=== PATIENT | female | born 1960 | race Caucasian/White ===

== ENCOUNTER → 2016-09-29 | Outpatient (CLI) | payer SELFPAY ==
[2016-01-04 08:57] VITALS: BP 168/83
[~2016-09-29] MED LIST: AMOX1TAB61 PO; METO50TA2 PO; PRED1TAB3 PO; WARF3TAB7 PO; ZOLP5TAB4 PO
--- NOTE | 2016-09-29 09:37 | CARD ---
APPROVED REPORT EXAM: Two-dimensional and M-mode echocardiogram with Doppler and color Doppler. Other Information Quality : GoodHR: 106bpm Rhythm : Tachycardia INDICATION Elevated BPN, SOB, Lower extremity edema RISK FACTORS Hypertension Family History Smoking 2D DIMENSIONS RVDd3.0 (2.9-3.5cm)Left Atrium(2D)3.8 (1.6-4.0cm) IVSd1.0 (0.7-1.1cm)Aortic Root(2D)2.9 (2.0-3.7cm) LVDd5.6 (3.9-5.9cm)LVOT Diameter2.3 (1.8-2.4cm) PWd1.0 (0.7-1.1cm)LVDs5.2 (2.5-4.0cm) FS (%) 8.6 %SV29.2 ml LVEF(%)18.7 (>50%) Aortic Valve AoV Peak Rudy.95.4cm/sAoV VTI13.7cm AO Peak GR.3.6mmHgLVOT Peak Rudy.66.4cm/s AO Mean GR.2mmHgAVA (VMAX)2.81cm2 Mitral Valve MV E Peak Gr.6mmHgMV E Mean Gr.2mmHg Pulmonary Valve PV Peak Gnljthwy897.3cm/s Tricuspid Valve TR P. Iaosoaab325zm/sTR Peak Gr.40mmHg Pulmonary Vein S1 Webydpjd45.5cm/sD2 Upnlosfz34.1cm/s PVa [id number] LEFT VENTRICLE The Left Ventricle is mildly dilated. There is normal left ventricular wall thickness. Left ventricle systolic function is severely impaired. The Ejection Fraction is <20%. There is severe global hypoki nesis of the left ventricle. There is akinesis in the basal, mid and apical anteior hagen. Tissue Dop pler imaging reveals severe left ventricular diastolic dysfunction. No left ventricle thrombus noted on this study. There is no left ventricular aneurysm. RIGHT VENTRICLE The right ventricle is normal size. There is normal right ventricular wall thickness. The right ventr icular systolic function is normal. ATRIA The left atrium is severely dilated. The right atrium size is normal. The interatrial septum is intac t with no evidence for an atrial septal defect or patent foramen ovale as noted on 2-D or Doppler williams ging. AORTIC VALVE The aortic valve is mildly The aortic valve is thickened. Doppler and Color Flow revealed no signific ant aortic regurgitation. There is no significant aortic valvular stenosis. MITRAL VALVE The mitral valve leaflets are thickened. There is no evidence of mitral valve prolapse. There is no m itral valve stenosis. Doppler and Color Flow revealed mild mitral regurgitation. TRICUSPID VALVE Doppler and Color Flow revealed moderate tricuspid regurgitation. The pulmonary artery systolic press ure is estimated at 59 mmHg. There is moderate pulmonary hypertension. PULMONIC VALVE Doppler and Color Flow revealed mild pulmonic valvular regurgitation. There is no pulmonic valvular s tenosis. GREAT VESSELS The aortic root is normal in size. The ascending aorta is normal in size. The IVC is dilated and dashawn apses <50% with inspiration consistent with volume overload. PERICARDIAL EFFUSION There is no evidence of significant pericardial effusion. Critical Notification Physician Notified Date: 09/29/2016 Time: 09:35 Physician Name:Appl Critical Value: No <Conclusion> Left ventricle systolic function is severely impaired. The Ejection Fraction is <20%. There is severe global hypokinesis of the left ventricle. There is akinesis in the basal, mid and ap ical anteior hagen. Tissue Doppler imaging reveals severe left ventricular diastolic dysfunction. Doppler and Color Flow revealed mild mitral regurgitation. Doppler and Color Flow revealed moderate tricuspid regurgitation. The pulmonary artery systolic press ure is estimated at 59 mmHg. There is moderate pulmonary hypertension. The IVC is dilated and collapses <50% with inspiration consistent with volume overload. *D/w with primary care physician, will plan for coronary angiography due to symptomatic heart failure .
== END | disposition home or self-care (01) ==
LOC: ECHO 07:49
PROVIDERS: ATTEND Nurse Practitioner Family
DX: R94.5 Abnormal results of liver function studies (principal); R79.89 Other specified abnormal findings of blood chemistry; R06.02 Shortness of breath; R60.0 Localized edema; I34.0 Nonrheumatic mitral (valve) insufficiency; I07.1 Rheumatic tricuspid insufficiency; I27.2 Other secondary pulmonary hypertension
CPT/HCPCS: 93306

== ENCOUNTER 2016-09-30 10:18 | Inpatient (IN) | payer SELFPAY ==
[~2016-09-30] VITALS: Ht 167.6 cm; Wt 86.8 kg
[2016-09-30 11:16] LABS: BASO % 1 % (0-3); EOS % 0 % (0-3); HEMATOCRIT 44.2 % (36.0-47.0); HEMOGLOBIN 14.3 g/dL (12.0-15.5); LYMPH # 0.8 x10^3/uL (1.0-4.8); LYMPH % 9 % (24-48); MEAN CORPUSCULAR HEMOGLOBIN 27 pg (25-35); MEAN CORPUSCULAR HGB CONC 32 g/dL (31-37); MEAN CORPUSCULAR VOLUME 83 fL (79-100); MONO % 8 % (0-9); NEUT % 83 % (31-73); PLATELET COUNT 227 x10^3/uL (140-400); RED BLOOD COUNT 5.31 x10^6/uL (3.50-5.40); RED CELL DISTRIBUTION WIDTH 16.4 % (11.5-14.5); WHITE BLOOD COUNT 9.7 x10^3/uL (4.0-11.0)
[2016-09-30 11:29] LABS: CALCIUM 9.2 mg/dL (8.5-10.1); CREATININE 0.9 mg/dL (0.6-1.0); GFR 64.8; POTASSIUM 3.5 mmol/L (3.5-5.1)
--- NOTE | 2016-09-30 11:33 | RAD ---
INDICATION: cough, fever, dyspnea COMPARISON: 12/30/2015 FINDINGS: Single view of chest obtained. Cardiac silhouette is enlarged. No definite new region of focal airspace consolidation or edema. Interval improvement in previously identified right lower lung opacity. IMPRESSION: No definite new region of focal airspace consolidation. Cardiac silhouette is enlarged.
[2016-09-30 11:34] LABS: OBC FLU VALID
[2016-09-30 11:36] LABS: ALBUMIN 3.4 g/dL (3.4-5.0); ALBUMIN/GLOBULIN RATIO 0.9 (1.0-1.7); TOTAL BILIRUBIN 1.1 mg/dL (0.2-1.0); TOTAL PROTEIN 7.4 g/dL (6.4-8.2)
[2016-09-30 11:43] LABS: CKMB INDEX 2.5 % (0-4); CKMB MASS 2.7 ng/mL (0.0-3.6)
[2016-09-30] MEDS ORDERED: OSELTAMIVIR 75 MG CAPSULE PO ONE (12:00)
[2016-09-30] MEDS ORDERED: FUROSEMIDE 40 MG/4 ML VIAL IVP ONE (12:00)
--- NOTE | 2016-09-30 12:17 | PHYS DOC ---
Past Medical History Past Medical History: Asthma, Bronchitis, CHF, Hypertension, Lung Disease Past Surgical History: Other Additional Past Surgical Histo: chest tube placement and removal Alcohol Use: None Drug Use: Marijuana, Methamphetamine Adult General Chief Complaint Chief Complaint: SHORTNESS OF BREATH HPI HPI Patient is a 56 year old female brought to the ED by her daughter with the complaint of not feeling well and short of air. Patient states she has been sick for about a week. She's had fever, she aches all over. She short of breath and has had a cough. Nausea but no vomiting, no diarrhea. She is spitting up bloody/pink frothy sputum. The patient was short of air before she got sick with this illness. The patient states she did not get a flu shot because "she never gets a flu shot". Patient had an echocardiogram yesterday and was found to have a very low ejection fraction and is actually scheduled to have a heart catheter in 2 days. They are no what is causing that. She had the echo because of her shortness of air. Patient had surgery in 2011 for an empyema in her right lung, also had "blood clots" at that time. She usually takes daily warfarin but it has been held since Thursday. PCP Review of Systems Review of Systems Constitutional: Positive fever and chills Eyes: Denies change in visual acuity, redness, or eye pain [] HENT: Denies nasal congestion or sore throat [] Respiratory: As in history of present illness Cardiovascular: As in history of present illness GI: As in history of present illness : Denies dysuria or hematuria [] Musculoskeletal: Aches all over with this illness Integument: Denies rash or skin lesions [] Neurologic: Denies focal weakness or sensory changes [] Current Medications Current Medications Current Medications Medications (Trade) Dose Ordered Sig/José Luis Start Time Stop Time Status Last Admin Dose Admin Furosemide (Lasix) 40 mg 1X ONCE 09/30/16 12:00 09/30/16 12:03 DC Oseltamivir Phosphate (Tamiflu) 75 mg BID 09/30/16 21:00 10/05/16 20:59 UNV Allergies Allergies Allergies Coded Allergies Type Severity Reaction Last Updated Verified No Known Drug Allergies 12/30/15 No Physical Exam Physical Exam Constitutional: Well developed, well nourished, alert, mentating normally, appears to not feel well, appears weak, tachycardic, tachypneic, sat on room air is 96% HENT: Normocephalic, atraumatic, bilateral external ears normal, nose normal. [ ] Eyes: conjunctiva normal, no discharge. [] Neck: Normal range of motion, no stridor. [] Cardiovascular:Heart rate regular tachycardia, no murmur [] Lungs & Thorax: Breath sounds present bilaterally, rales in both bases, expiratory wheezes present Abdomen: Bowel sounds normal, soft, no tenderness, no masses, no pulsatile masses. [] Skin: Warm, dry, no erythema, no rash. [] Extremities: No tenderness, no cyanosis, no clubbing, ROM intact, no edema. [] Neurologic: Alert and oriented X 3, normal motor function, normal sensory function, no focal deficits noted. [] Current Patient Data Vital Signs Vital Signs Date Time Temp Pulse Resp B/P Pulse Ox O2 Delivery O2 Flow Rate FiO2 09/30/16 11:04 115 24 143/72 96 Room Air 09/30/16 10:25 102.8 102.8 Lab Values Laboratory Tests Test 09/30/16 11:00 White Blood Count 9.7x10^3/uL (4.0-11.0) Red Blood Count 5.31x10^6/uL (3.50-5.40) Hemoglobin 14.3g/dL (12.0-15.5) Hematocrit 44.2% (36.0-47.0) Mean Corpuscular Volume 83fL (79-100) Mean Corpuscular Hemoglobin 27pg (25-35) Mean Corpuscular Hemoglobin Concent 32g/dL (31-37) Red Cell Distribution Width 16.4% (11.5-14.5) H Platelet Count 227x10^3/uL (140-400) Neutrophils (%) (Auto) 83% (31-73) H Lymphocytes (%) (Auto) 9% (24-48) L Monocytes (%) (Auto) 8% (0-9) Eosinophils (%) (Auto) 0% (0-3) Basophils (%) (Auto) 1% (0-3) Neutrophils # (Auto) 8.1x10^3uL (1.8-7.7) H Lymphocytes # (Auto) 0.8x10^3/uL (1.0-4.8) L Monocytes # (Auto) 0.7x10^3/uL (0.0-1.1) Eosinophils # (Auto) 0.0x10^3/uL (0.0-0.7) Basophils # (Auto) 0.0x10^3/uL (0.0-0.2) Sodium Level 137mmol/L (136-145) Potassium Level 3.5mmol/L (3.5-5.1) Chloride Level 100mmol/L (98-107) Carbon Dioxide Level 25mmol/L (21-32) Anion Gap 12 (6-14) Blood Urea Nitrogen 10mg/dL (7-20) Creatinine 0.9mg/dL (0.6-1.0) Estimated GFR (Cockcroft-Gault) 64.8 BUN/Creatinine Ratio 11 (6-20) Glucose Level 101mg/dL (70-99) H Calcium Level 9.2mg/dL (8.5-10.1) Total Bilirubin 1.1mg/dL (0.2-1.0) H Aspartate Amino Transferase (AST) 32U/L (15-37) Alanine Aminotransferase (ALT) 35U/L (14-59) Alkaline Phosphatase 128U/L (46-116) H Creatine Kinase 107U/L (26-192) Creatine Kinase MB (Mass) 2.7ng/mL (0.0-3.6) Creatine Kinase MB Relative Index 2.5% (0-4) Troponin I Quantitative 0.053ng/mL (0.000-0.055) SP-Fns-G-Type Natriuretic Peptide 5553pg/mL (0-124) H Total Protein 7.4g/dL (6.4-8.2) Albumin 3.4g/dL (3.4-5.0) Albumin/Globulin Ratio 0.9 (1.0-1.7) L Influenza Type A Antigen Positive (NEGATIVE) Influenza Type B Antigen Negative (NEGATIVE) Laboratory Tests 09/30/16 11:00 Laboratory Tests 09/30/16 11:00 EKG EKG 12-lead EKG read by me. Sinus tachycardia. Heart rate 1:15. There is some mild ST depression in V6 may be consistent with ischemia, there are no ST elevations. No STEMI. 1029 [] Radiology/Procedures Radiology/Procedures One view portable chest x-ray read by the radiologist. Heart size is enlarged. Lung munson are felt to be clear. No acute infiltrate. By my evaluation it does look like there is some vascular cephalization consistent with congestive heart failure. [] Course & Med Decision Making Course & Med Decision Making Pertinent Labs and Imaging studies reviewed. (See chart for details) 56-year-old lady who is currently undergoing outpatient evaluation for heart failure, just had an echocardiogram yesterday that was markedly abnormal, and prompted an outpatient cardiac catheter to be scheduled for 2 days from now. However, she has had a febrile illness for several days that sounds like influenza. In fact, influenza test is positive. Even though historically her influenza may have started more than 72 hours ago, I did start her on Tamiflu since she'll be admitted to the hospital and the timeline is also somewhat unclear. Patient appears dyspneic, she is tachypneic and tachycardic. Even though her sat is 96% on room air, I put on oxygen 2 L by nasal cannula to see if that would help her symptomatically. BNP is elevated, I ordered a dose of IV furosemide. I discussed the case with Dr. Baez, we will admit the patient. I wrote bridge orders. I consult to cardiology. She was given Tamiflu and furosemide in the emergency department. Nursing staff is aware that she is positive for influenza. [] Dragon Disclaimer Dragon Disclaimer This electronic medical record was generated, in whole or in part, using a voice recognition dictation system. Departure Departure Impression: Primary Impression: Influenza A Additional Impression: CHF (congestive heart failure) Disposition: ADMITTED INPATIENT Admitting Physician: Constance Baez Condition: GUARDED Referrals: CONSTANCE BAEZ MD (PCP) Problem Qualifiers MARY CARMEN GUTIERREZ MD Sep 30, 2016 12:17
--- NOTE | 2016-09-30 12:49 | EKG ---
[facility] [address] [place] [address] Test Date: 2016-09-30 Test Time: 10:29:14 Pat Name: CARITO MOLINA Department: Room: Gender: F Tsa Screener: : 1960 Requested By: MARY CARMEN GUTIERREZ Order Number: [id number] Reading MD: Measurements Intervals [place] Rate: 115 P: -66 IA: 116 QRS: -19 QRSD: 96 T: 67 QT: 342 QTc: 475 Interpretive Statements SINUS TACHYCARDIA LEFT ATRIAL ABNORMALITY LEFTWARD AXIS QRS(T) CONTOUR ABNORMALITY CONSIDER INFERIOR MYOCARDIAL DAMAGE T ABNORMALITY IN LATERAL LEADS ABNORMAL ECG RI6.01 No previous ECG available for comparison
[2016-09-30] MEDS ORDERED: ACETAMINOPHEN 500 MG TABLET PO ONE (13:00)
--- NOTE | 2016-09-30 15:05 | PDOC2 ---
ESTEPHANIE CAMPOS TWITCHELL OPERATOR 09/30/16 1505: CARDIAC CONSULT DATE OF CONSULT Date of Consult DATE: 09/30/16 TIME: 14:35 REASON FOR CONSULT Reason for Consult: CHF REFERRING PHYSICIAN Referring Physician: Aroldo SOURCE Source: Chart review, Patient HISTORY OF PRESENT ILLNESS HISTORY OF PRESENT ILLNESS This is a pleasant 56 yo female admitted for complains of URI symptoms and CHF symptoms in the last week. Reports that she has been having nasal congestion, some chills and myalgia and weakness in the last weak. She has noticed her activity tolerance declined gradually in the last several months. Reports that in the last 1-2 weeks she has been having orthopnea, PND, white sputum with ping to red tinge coloration. Positive for peripheral edema and SOA and GONZALEZ. CUrrently she does not appear to be in distress and denies any palpitations or chest pain. Despite all these symptoms she continued to use tobacco with her last use this morning and marijuana and meth last use this weekend. She told that she kept on using this because she is stupid. Reports compliance with her medications otherwise. 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 No prior hx of CAD. She said that she uses her COPD inhalers. PAST MEDICAL HISTORY Cardiovascular: CHF, HTN Pulmonary: COPD, Pulmonary embolus (DVT 2011), Pneumonia, Other (right empyema) CENTRAL NERVOUS SYSTEM: Other (No pertinent history) GI: GERD Heme/Onc: No pertinent hx, Other (chronic anticoagulation) Hepatobiliary: No pertinent hx Musculoskeletal: Osteoarthritis Infectious disease: No pertinent hx ENT: No pertinent hx Renal/: No pertinent hx Endocrine: No pertinent hx Dermatology: No pertinent hx PAST SURGICAL HISTORY Past Surgical History: , Other (right thoracotomy) SOCIAL HISTORY Smoke: <1 pack per day ALCOHOL: none Drugs: Marijuana, Crystal meth Lives: with Family CURRENT MEDICATIONS CURRENT MEDICATIONS Current Medications Medications (Trade) Dose Ordered Sig/José Luis Route PRN Reason Start Time Stop Time Status Last Admin Dose Admin Oseltamivir Phosphate (Tamiflu) 75 mg 1X ONCE PO 09/30/16 12:00 09/30/16 12:01 DC 09/30/16 12:18 Furosemide (Lasix) 40 mg 1X ONCE IVP 09/30/16 12:00 09/30/16 12:03 DC 09/30/16 12:18 Acetaminophen (Tylenol) 1,000 mg 1X ONCE PO 09/30/16 13:00 09/30/16 13:01 DC 09/30/16 12:56 ALLERGIES ALLERGIES: Coded Allergies: No Known Drug Allergies (Unverified , 12/30/15) ROS Review of System 14 point ROS evaluated with pertinent positives noted per HPI PHYSICAL EXAM General: Alert, Oriented X3, Cooperative, No acute distress HEENT: Atraumatic, Mucous membr. moist/pink Lungs: Other Heart: Regular rate, Normal S1, Normal S2, Other (EKG Sinus tach with LAFB/MUNA ; 3/6 systolic murmur to LLS border) Abdomen: Soft, No tenderness Extremities: No cyanosis, Other (2+ bilateral LE pitting edema) Skin: No breakdown, No significant lesion Neuro: Normal speech, Sensation intact Psych/Mental Status: Mental status NL, Mood NL MUSCULOSKELETAL: Osteoarthritic changes both hands VITALS VITALS Vital Signs Date Time Temp Pulse Resp B/P Pulse Ox O2 Delivery O2 Flow Rate FiO2 09/30/16 12:00 112 30 155/72 99 Nasal Cannula 2 09/30/16 10:25 102.8 102.8 LABS Lab: Laboratory Tests Test 09/30/16 11:00 White Blood Count 9.7x10^3/uL (4.0-11.0) Red Blood Count 5.31x10^6/uL (3.50-5.40) Hemoglobin 14.3g/dL (12.0-15.5) Hematocrit 44.2% (36.0-47.0) Mean Corpuscular Volume 83fL (79-100) Mean Corpuscular Hemoglobin 27pg (25-35) Mean Corpuscular Hemoglobin Concent 32g/dL (31-37) Red Cell Distribution Width 16.4% (11.5-14.5) Platelet Count 227x10^3/uL (140-400) Neutrophils (%) (Auto) 83% (31-73) Lymphocytes (%) (Auto) 9% (24-48) Monocytes (%) (Auto) 8% (0-9) Eosinophils (%) (Auto) 0% (0-3) Basophils (%) (Auto) 1% (0-3) Neutrophils # (Auto) 8.1x10^3uL (1.8-7.7) Lymphocytes # (Auto) 0.8x10^3/uL (1.0-4.8) Monocytes # (Auto) 0.7x10^3/uL (0.0-1.1) Eosinophils # (Auto) 0.0x10^3/uL (0.0-0.7) Basophils # (Auto) 0.0x10^3/uL (0.0-0.2) Sodium Level 137mmol/L (136-145) Potassium Level 3.5mmol/L (3.5-5.1) Chloride Level 100mmol/L (98-107) Carbon Dioxide Level 25mmol/L (21-32) Anion Gap 12 (6-14) Blood Urea Nitrogen 10mg/dL (7-20) Creatinine 0.9mg/dL (0.6-1.0) Estimated GFR (Cockcroft-Gault) 64.8 BUN/Creatinine Ratio 11 (6-20) Glucose Level 101mg/dL (70-99) Calcium Level 9.2mg/dL (8.5-10.1) Total Bilirubin 1.1mg/dL (0.2-1.0) Aspartate Amino Transf (AST/SGOT) 32U/L (15-37) Alanine Aminotransferase (ALT/SGPT) 35U/L (14-59) Alkaline Phosphatase 128U/L (46-116) Creatine Kinase 107U/L (26-192) Creatine Kinase MB (Mass) 2.7ng/mL (0.0-3.6) Creatine Kinase MB Relative Index 2.5% (0-4) Troponin I Quantitative 0.053ng/mL (0.000-0.055) XZ-Pru-Y-Type Natriuretic Peptide 5553pg/mL (0-124) Total Protein 7.4g/dL (6.4-8.2) Albumin 3.4g/dL (3.4-5.0) Albumin/Globulin Ratio 0.9 (1.0-1.7) Influenza Type A Antigen Positive (NEGATIVE) Influenza Type B Antigen Negative (NEGATIVE) ECHOCARDIOGRAM ECHOCARDIOGRAM <Conclusion> Left ventricle systolic function is severely impaired. The Ejection Fraction is <20%. There is severe global hypokinesis of the left ventricle. There is akinesis in the basal, mid and apical anterior haegn. Tissue Doppler imaging reveals severe left ventricular diastolic dysfunction. Doppler and Color Flow revealed mild mitral regurgitation. Doppler and Color Flow revealed moderate tricuspid regurgitation. The pulmonary artery systolic pressure is estimated at 59 mmHg. There is moderate pulmonary hypertension. The IVC is dilated and collapses <50% with inspiration consistent with volume overload. *D/w with primary care physician, will plan for coronary angiography due to symptomatic heart failure. DATE: 09/29/16 0936 ASSESSMENT/PLAN ASSESSMENT/PLAN 1. Viral syndrome with FLU A: Tmax 102.8 2 AECOPD with Chronic tobaccoism: >30 pk yr continued use 3. Acute on chronic mixed diastolic/systolic CHF 4. Cardiomyopathy: newly diagnosed, noted via TTE 09/29/2016. Suspect toxic induced. 5. Hx of DVT/PE (2011) with chronic coumadin therapy (on hold since Thursday) 6. Hx of substance abuse: meth and marijuana 7. Substance abuse: marijuana and meth with last use this 8. Hemoptysis: Hgb stable Recommendation 1. Diuretic therapy. ECASA 2. Tamiflu on board. Anticipating Cardiac cath on and note any ischemic involvement in relation to significant cardiomyopathy 3. Begin optimization. Avoid BB for now with recent meth use. BP is normalized. Will evaluate antiHTN needs in AM. Hydralazine IV PRN. 4. Discussed adherence to medical treatment and abstinence to meth/marijuana. Smoking cessation 5. Hold BB for now with meth use. 6. TSH, lipid panel, PT/INR, tox screen 7. Recommend pulmonary consult for optimization. 8. Hold coumadin for now in anticipation of LHC. Problems: FILOMENA WILSON MD 10/01/16 0913: CARDIAC CONSULT ALLERGIES ALLERGIES: Coded Allergies: No Known Drug Allergies (Unverified , 12/30/15) ASSESSMENT/PLAN ASSESSMENT/PLAN Late entry for 09/30/2016. Patient seen and examined on 09/30/2016. Agree with above nurse practitioner note. 56-year-old woman who was initially seen during her echocardiogram and was scheduled for a cardiac catheterization given dilated cardio myopathy with ejection fraction of less than 20%. She presents with dyspnea and body aches and has been diagnosed with influenza. She is currently on medical treatment for it. It is unlikely that her influenza caused her severe cardiomyopathy. We will plan on stabilization over 48 hours and cardiac catheterization on October 02. On examination she is fatigued. Lung sounds are notable for rhonchi. No edema is present. Labs and medications reviewed. Thank you for this consultation. Problems: ESTEPHANIE CAMPOS APRN Sep 30, 2016 15:05 FILOMENA WILSON MD Oct 01, 2016 09:13
--- NOTE | 2016-09-30 15:53 | ACF ---
Admission Forms Criteria HEART FAILURE Clinical Indications for Admission to Inpatient Care (Place 'X' for any and all applicable criteria): Admission is indicated by ANY ONE of the following(1)(2)(3)(4): [ ]I. Severe electrolyte abnormalities requiring inpatient care(9) [ ]II. Hemodynamic instability [ ]III. Anasarca [ ]IV. Acute cardiac ischemia causing or associated with failure (Also use Angina or Myocardial Infarction as appropriate) [ ]V. Cardiac arrhythmias of immediate concern [ ]. Precipitating cause for acute decompensation (eg, pneumonia, pulmonary embolism) requires inpatient care [ ]VII. Pulmonary edema that is very severe (eg, mechanical ventilation needed, imminent or likely, need for 100% oxygen to keep oxygen saturation above 90%) [ ]VIII. Inpatient admission required rather than observation care (Also use Heart Failure: Observation Care as appropriate) because of ANY ONE of the following: [ ]a) Pulmonary edema that is severe or worsening as indicated by ALL of the following: [ ]i) New need for oxygen therapy to keep oxygen saturation above 90% (or increased FiO2 need from baseline) [ ]ii) Has not improved sufficiently with emergency department or observation care IV diuretics or other heart failure treatments[C] [ ]b) Cognitive impairment that is severe or persistent [ ]c) Increased creatinine (new on laboratory test) with reduction of more than 50% in estimated glomerular filtration rate from baseline. [ ]d) Acute renal insufficiency (progressively (ongoing) rising creatinine (known from past laboratory test) with reduction of more than 25% in estimated glomerular filtration rate from baseline) [ ]e) Acute peripheral ischemia (eg, pulseless, cool, mottled, or cyanotic extremity) [ ]f) Acute renal failure [ ]g) Supplemental O2 or respiratory treatment for >24 hr that are performable only in acute inpatient setting [ ]h) Pulmonary artery catheter monitoring [ ]i) Other condition, treatment or monitoring requiring inpatient admission [X]IX. Contraindications and/or Inappropriate clinical situations for Observational Care in patients with Heart Failure, when ANY ONE of the following is required: [ ]a) Patient with High risk of cardiac embolism (e.g, patients with previous cardiac embolism, LVEF < 40%, age >75 and patients with prosthetic valve) 18 [ ]b) Patient with Moderate risk including DM patient, CAD and patient aged 65-75 [ ]c) Patient with any change in cardiac biomarker especially troponin should be managed as high risk in an inpatient setting 19 [ ]d) Physician judgement irrespective of ECG and other diagnostic findings 20 [ ]e) Patients with hyponatremia have high risk for mortality and require more extensive care and length of stay 21 [X]f) Need for large volume diuresis 21 [ ]g) Presence of renal insufficiency or hypotension limiting speed of diuresis 21 [ ]h) Acute cardiac Ischemia in the elderly 21 [ ]i) Patients with a 30 day risk of mortality based on a multidimensional prognostic index (MPI) [J,]21 [ ]X. General contraindications and/or Inappropriate clinical situations for Observational Care in patients with Heart Failure, when ANY ONE of the following is required: [ ]a) Prediction of prolongation of LOS based on ANY ONE of the following may be considered as a contraindication for observational care 2, 3, 4, 5, 6, 7, 8 , 9, 10, 11 [ ]i) Age > 65 yrs. [ ]ii) Patient arriving by ambulance [ ]iii) Patient with high acuity [ ]iv) Patient requiring vital sign monitoring [ ]v) Patient on IV medication [ ]b) Systolic blood pressures 180mmHg 3,12 [ ]c) Patient with altered mental status including delirium and other alteration of consciousness, (3) [ ]d) Patient whose discharge disposition will be to a fpc home or rehabilitation home should not be managed in Emergency Department Observation Unit. CMS rule requires 3 days hospital stay before such placement.3,13 [ ]e) Patient with failure to thrive due to broad array of etiologies 3,16,17 [ ]f) Inability to ambulate 3,14 Extended stay beyond goal length of stay may be needed for(1)(3)(21)(25): [ ]a) Cardiac ischemia, confirmed or suspected as precipitant [ ]b) Cardiogenic shock or refractory pulmonary edema [ ]c) Acute kidney injury or renal failure [ ]d) Respiratory failure (eg, need for noninvasive or invasive mechanical ventilation) (23) [ ]e) Concomitant pneumonia or significant electrolyte abnormality (eg, severe hyponatremia) [ ]f) Newly diagnosed (new onset) atrial fibrillation [ ]g) Stage IV chronic kidney disease (estimated glomerular filtration rate of less than 30 mL/min/1.73m2 (0.50 mL/sec/1.73m2), and not previously on chronic dialysis The original [facility] content created by [facility] has been revised. The portions of the content which have been revised are identified through the use of italic text or in bold, and [facility] (formerly [facility]) has neither reviewed nor approved the modified material. All other unmodified content is copyright [facility]. Please see references footnoted in the original [facility] edition 2016 Admission Criteria Met?: Yes IAN BIGGS. Sep 30, 2016 15:53
[2016-09-30 15:59] LABS: INR 1.5 (0.8-1.1); PROTHROMBIN TIME PATIENT 17.2 SEC (11.7-14.0)
[2016-09-30 18:00] VITALS: BP 115/66
[2016-09-30] MEDS ORDERED: ACETAMINOPHEN 325 MG TABLET. PO PRN (18:45)
[2016-09-30 19:15] VITALS: BP 135/70
[2016-09-30] MEDS ORDERED: hydrALAZINE 20 MG/ML VIAL. IVP PRN (19:30)
[2016-09-30] MEDS: ACETAMINOPHEN 325 MG TABLET. PO PRN (19:32)
[2016-09-30] MEDS: OSELTAMIVIR 75 MG CAPSULE PO SCH (21:20)
[2016-09-30] MEDS: ALPRAZOLAM 0.5 MG TABLET PO PRN (21:20)
[2016-10-01] VITALS (7 sets, daily range): BP systolic 125–142; BP diastolic 71–79
[2016-10-01] MEDS: ACETAMINOPHEN 325 MG TABLET. PO PRN ×3 (02:34→23:30)
[2016-10-01 06:29] LABS: INR 1.4 (0.8-1.1); PROTHROMBIN TIME PATIENT 15.9 SEC (11.7-14.0)
[2016-10-01] MEDS: OSELTAMIVIR 75 MG CAPSULE PO SCH ×2 (08:37→20:53)
[2016-10-01] MEDS: ALBUTEROL SULFATE 2.5 MG/3 ML NEBU. NEB PRN (08:39)
--- NOTE | 2016-10-01 09:32 | PDOC ---
PROGRESS NOTES Subjective Subjective Pt awake and pleasant this am. States she is fatigued with generalized body aches. Pt states she continues to have a productive cough with small amount of blood in her sputum. Pt states she has a decreased appetite, however has been eating and drinking well with normal output. Objective Objective Pt awake and alert. NAD. VSS. Afebrile. Lung sounds diminished with loose rhonchi and expiratory wheeze present. Resp even and unlabored. Pt on RA. Heart with RRR. No murmurs. Pt with 2+ pedal edema. Vital Signs Date Time Temp Pulse Resp B/P Pulse Ox O2 Delivery O2 Flow Rate FiO2 10/01/16 08:26 91 Room Air 10/01/16 07:30 98.7 98 20 125/71 98.7 09/30/16 17:17 2 Intake and Output 10/01/16 07:00 Intake Total 0 ml Output Total 500 ml Balance -500 ml Intake Oral 0 ml Output Urine Total 500 ml # Voids 5 Assessment Assessment Problems Medical Problems: (1) CHF (congestive heart failure) Status: Acute (2) Influenza A Status: Acute Plan Plan of Care 1. Influenza A -CXR negative for pneumonia -Tmax 102.8 -Tamiflu 75mg bid initiated 09/30 2 Acute exacerbation of COPD with Chronic tobaccoism 3. 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 Hx of DVT/PE (2011) -Antiplatelet: Coumadin, held since Thursday in anticipation of heart cath -INR 1.4 this am 5. Substance abuse: Crystal meth and marijuana Comment Review of Relevant I have reviewed the following items gerald (where applicable) has been applied. Labs Laboratory Tests Test 09/30/16 11:00 10/01/16 05:20 White Blood Count 9.7x10^3/uL (4.0-11.0) Red Blood Count 5.31x10^6/uL (3.50-5.40) Hemoglobin 14.3g/dL (12.0-15.5) Hematocrit 44.2% (36.0-47.0) Mean Corpuscular Volume 83fL (79-100) Mean Corpuscular Hemoglobin 27pg (25-35) Mean Corpuscular Hemoglobin Concent 32g/dL (31-37) Red Cell Distribution Width 16.4% (11.5-14.5) Platelet Count 227x10^3/uL (140-400) Neutrophils (%) (Auto) 83% (31-73) Lymphocytes (%) (Auto) 9% (24-48) Monocytes (%) (Auto) 8% (0-9) Eosinophils (%) (Auto) 0% (0-3) Basophils (%) (Auto) 1% (0-3) Neutrophils # (Auto) 8.1x10^3uL (1.8-7.7) Lymphocytes # (Auto) 0.8x10^3/uL (1.0-4.8) Monocytes # (Auto) 0.7x10^3/uL (0.0-1.1) Eosinophils # (Auto) 0.0x10^3/uL (0.0-0.7) Basophils # (Auto) 0.0x10^3/uL (0.0-0.2) Prothrombin Time 17.2SEC (11.7-14.0) 15.9SEC (11.7-14.0) Prothromb Time International Ratio 1.5 (0.8-1.1) 1.4 (0.8-1.1) Sodium Level 137mmol/L (136-145) Potassium Level 3.5mmol/L (3.5-5.1) Chloride Level 100mmol/L (98-107) Carbon Dioxide Level 25mmol/L (21-32) Anion Gap 12 (6-14) Blood Urea Nitrogen 10mg/dL (7-20) Creatinine 0.9mg/dL (0.6-1.0) Estimated GFR (Cockcroft-Gault) 64.8 BUN/Creatinine Ratio 11 (6-20) Glucose Level 101mg/dL (70-99) Calcium Level 9.2mg/dL (8.5-10.1) Total Bilirubin 1.1mg/dL (0.2-1.0) Aspartate Amino Transf (AST/SGOT) 32U/L (15-37) Alanine Aminotransferase (ALT/SGPT) 35U/L (14-59) Alkaline Phosphatase 128U/L (46-116) Creatine Kinase 107U/L (26-192) Creatine Kinase MB (Mass) 2.7ng/mL (0.0-3.6) Creatine Kinase MB Relative Index 2.5% (0-4) Troponin I Quantitative 0.053ng/mL (0.000-0.055) HM-Jxn-N-Type Natriuretic Peptide 5553pg/mL (0-124) Total Protein 7.4g/dL (6.4-8.2) Albumin 3.4g/dL (3.4-5.0) Albumin/Globulin Ratio 0.9 (1.0-1.7) Triglycerides Level 59mg/dL (0-150) Cholesterol Level 132mg/dL (0-200) LDL Cholesterol, Calculated 76mg/dL (0-100) VLDL Cholesterol, Calculated 12mg/dL (0-40) HDL Cholesterol 44mg/dL (40-60) Cholesterol/HDL Ratio 3.0 Thyroid Stimulating Hormone (TSH) 0.575uIU/mL (0.358-3.74) Influenza Type A Antigen Positive (NEGATIVE) Influenza Type B Antigen Negative (NEGATIVE) Laboratory Tests Test 09/30/16 11:00 10/01/16 05:20 White Blood Count 9.7x10^3/uL (4.0-11.0) Red Blood Count 5.31x10^6/uL (3.50-5.40) Hemoglobin 14.3g/dL (12.0-15.5) Hematocrit 44.2% (36.0-47.0) Mean Corpuscular Volume 83fL (79-100) Mean Corpuscular Hemoglobin 27pg (25-35) Mean Corpuscular Hemoglobin Concent 32g/dL (31-37) Red Cell Distribution Width 16.4% (11.5-14.5) Platelet Count 227x10^3/uL (140-400) Neutrophils (%) (Auto) 83% (31-73) Lymphocytes (%) (Auto) 9% (24-48) Monocytes (%) (Auto) 8% (0-9) Eosinophils (%) (Auto) 0% (0-3) Basophils (%) (Auto) 1% (0-3) Neutrophils # (Auto) 8.1x10^3uL (1.8-7.7) Lymphocytes # (Auto) 0.8x10^3/uL (1.0-4.8) Monocytes # (Auto) 0.7x10^3/uL (0.0-1.1) Eosinophils # (Auto) 0.0x10^3/uL (0.0-0.7) Basophils # (Auto) 0.0x10^3/uL (0.0-0.2) Prothrombin Time 17.2SEC (11.7-14.0) 15.9SEC (11.7-14.0) Prothromb Time International Ratio 1.5 (0.8-1.1) 1.4 (0.8-1.1) Sodium Level 137mmol/L (136-145) Potassium Level 3.5mmol/L (3.5-5.1) Chloride Level 100mmol/L (98-107) Carbon Dioxide Level 25mmol/L (21-32) Anion Gap 12 (6-14) Blood Urea Nitrogen 10mg/dL (7-20) Creatinine 0.9mg/dL (0.6-1.0) Estimated GFR (Cockcroft-Gault) 64.8 BUN/Creatinine Ratio 11 (6-20) Glucose Level 101mg/dL (70-99) Calcium Level 9.2mg/dL (8.5-10.1) Total Bilirubin 1.1mg/dL (0.2-1.0) Aspartate Amino Transf (AST/SGOT) 32U/L (15-37) Alanine Aminotransferase (ALT/SGPT) 35U/L (14-59) Alkaline Phosphatase 128U/L (46-116) Creatine Kinase 107U/L (26-192) Creatine Kinase MB (Mass) 2.7ng/mL (0.0-3.6) Creatine Kinase MB Relative Index 2.5% (0-4) Troponin I Quantitative 0.053ng/mL (0.000-0.055) HG-Alq-L-Type Natriuretic Peptide 5553pg/mL (0-124) Total Protein 7.4g/dL (6.4-8.2) Albumin 3.4g/dL (3.4-5.0) Albumin/Globulin Ratio 0.9 (1.0-1.7) Triglycerides Level 59mg/dL (0-150) Cholesterol Level 132mg/dL (0-200) LDL Cholesterol, Calculated 76mg/dL (0-100) VLDL Cholesterol, Calculated 12mg/dL (0-40) HDL Cholesterol 44mg/dL (40-60) Cholesterol/HDL Ratio 3.0 Thyroid Stimulating Hormone (TSH) 0.575uIU/mL (0.358-3.74) Influenza Type A Antigen Positive (NEGATIVE) Influenza Type B Antigen Negative (NEGATIVE) Medications Current Medications Oseltamivir Phosphate (Tamiflu) 75 mg 1X ONCE PO Last administered on 12:18; Start 09/30/16 at 12:00; Stop 09/30/16 at 12:01; Status DC Furosemide (Lasix) 40 mg 1X ONCE IVP Last administered on 09/30/16 12:18; Start 09/30/16 at 12:00; Stop 09/30/16 at 12:03; Status DC Oseltamivir Phosphate (Tamiflu) 75 mg BID PO Last administered on 10/01/16 08: 37; Start 09/30/16 at 21:00; Stop 10/05/16 at 20:59 Acetaminophen (Tylenol) 1,000 mg 1X ONCE PO Last administered on 09/30/16 12: 56; Start 09/30/16 at 13:00; Stop 09/30/16 at 13:01; Status DC Albuterol Sulfate (Ventolin Neb Soln) 2.5 mg PRN Q4HRS PRN NEB SHORTNESS OF BREATH Last administered on 10/01/16 08:39; Start 09/30/16 at 18:45 Amlodipine Besylate (Norvasc) 5 mg DAILY PO ; Start 10/01/16 at 09:00 Furosemide (Lasix) 40 mg DAILY PO ; Start 10/01/16 at 09:00 Acetaminophen (Tylenol) 325 mg PRN Q4HRS PRN PO MILD PAIN / TEMP; Start at 18:45 Acetaminophen (Tylenol) 650 mg PRN Q4HRS PRN PO MILD PAIN / TEMP Last administered on 10/01/16 02:34; Start 09/30/16 at 19:00 Hydralazine HCl (Apresoline) 10 mg PRN Q4HRS PRN IVP ELEVATED BP, SEE COMMENTS ; Start 09/30/16 at 19:30 Alprazolam (Xanax) 0.5 mg PRN Q6HRS PRN PO ANXIETY / AGITATION Last administered on 2/14/17at 21:20; Start 09/30/16 at 20:45 Active Scripts Active Vitals/I & O Vital Sign - Last 24 Hours 09/30/16 09/30/16 09/30/16 09/30/16 10:25 11:00 11:04 12:00 Temp 102.8 102.8 Pulse 113 116 115 112 Resp 24 30 B/P 166/70 143/72 143/72 155/72 Pulse Ox 95 96 96 99 O2 Delivery Room Air Room Air Room Air Nasal Cannula O2 Flow Rate 2 09/30/16 09/30/16 09/30/16 09/30/16 12:47 13:22 14:17 14:47 Pulse 120 117 96 92 Resp 24 B/P 165/76 170/72 146/67 152/65 Pulse Ox 94 99 99 O2 Delivery Nasal Cannula Nasal Cannula Nasal Cannula Nasal Cannula O2 Flow Rate 2 2 2 2 09/30/16 09/30/16 09/30/16 09/30/16 15:47 16:17 16:47 17:17 Pulse 90 88 84 94 B/P 129/57 135/62 128/65 144/68 Pulse Ox 94 93 92 93 O2 Delivery Nasal Cannula Nasal Cannula Nasal Cannula Nasal Cannula O2 Flow Rate 2 2 2 2 09/30/16 09/30/16 09/30/16 10/01/16 18:00 19:00 19:15 00:07 Temp 99.2 99.5 99.2 99.2 99.5 99.2 Pulse 57 103 102 Resp 20 20 20 B/P 115/66 135/70 134/77 Pulse Ox 97 96 94 O2 Delivery Room Air Room Air Room Air Room Air 10/01/16 10/01/16 10/01/16 02:21 07:30 08:26 Temp 100.4 98.7 100.4 98.7 Pulse 112 98 Resp 18 20 B/P 142/79 125/71 Pulse Ox 94 91 91 O2 Delivery Room Air Room Air Room Air Intake and Output 09/30/16 09/30/16 10/01/16 15:00 23:00 07:00 Intake Total 0 ml Output Total 300 ml 150 ml 50 ml Balance -300 ml -150 ml -50 ml CONSTANCE BAEZ MD Oct 01, 2016 09:32
[2016-10-01] MEDS: FUROSEMIDE 40 MG TABLET PO SCH (10:12)
[2016-10-01] MEDS: ASPIRIN ENTERIC COATED 81 MG TABLET.DR. PO SCH (10:12)
[2016-10-01] MEDS: AMLODIPINE BESYLATE 5 MG TABLET PO SCH (10:13)
--- NOTE | 2016-10-01 10:43 | HP ---
ADMIT DATE: 09/30/2016 This is Rachel Marion APRN, dictating on behalf of Dr. Constance Gooden. CHIEF COMPLAINT AND HISTORY OF PRESENT ILLNESS: This is a 56-year-old female who is well known to me from followup in the clinic. The patient was seen for shortness of breath 2 days prior to presenting to the Emergency Room and an echo was done at that time. The echo revealed an ejection fraction of 10%. The patient was scheduled to have an outpatient heart catheterization on this coming . The patient presented to the Emergency Room on the date of admission with complaints of an elevated fever, shortness of breath and frothy bloody sputum. The patient stated that her symptoms began approximately one week prior to presenting to the ER. The patient states that she did not receive her flu shot this year. She never received a flu shot. Upon examination in the Emergency Room, the patient was found to be febrile with a temperature of 102.8 and she was maintaining her oxygen saturations on room air. An EKG revealed sinus tach without STEMI. A portable chest x-ray revealed an increased heart size without any pneumonia present. The patient did test positive for influenza A and was started on Tamiflu 75 mg b.i.d. x 7 days. The patient was also given a dose of IV Lasix due to an elevated BNP in the ER. The patient was admitted to the hospital due to her influenza A and further workup by Cardiology for her low ejection fraction of unknown etiology. MEDICATIONS: Brought with the patient, listed on the computer and have been addressed. PAST MEDICAL HISTORY: DVT/PE on 2011. The patient has been on anticoagulation since. The patient has held her Coumadin since this last Thursday in anticipation for the heart catheterization. COPD, recurrent pneumonia, right empyema, GERD, osteoarthritis. PAST SURGICAL HISTORY: and right thoracotomy. SOCIAL HISTORY: The patient has a 30+ year of smoking tobacco. The patient denies alcohol use; however, does state that she uses marijuana and ____ frequently. The patient lives at home with her family. REVIEW OF SYSTEMS: As mentioned above. PHYSICAL EXAMINATION: GENERAL: She is a well-nourished, well developed white female who does appear ill on the morning of my examination. VITAL SIGNS: Stable with a T-max of 103 over the last 24 hours. The patient remains on room air, maintaining sats greater than 90%. HEENT: Head, eyes, ears, nose and throat are unremarkable. NECK: Supple without adenopathy or thyromegaly. CHEST: Respirations are even and unlabored. Lung sounds are diminished with some loose rhonchi throughout and an expiratory wheeze. The patient does have a productive cough. HEART: Regular rate and rhythm without S3, S4 or murmur. ABDOMEN: Soft and nontender without hepatosplenomegaly or mass. EXTREMITIES: Without cyanosis or clubbing. The patient does have 2+ pedal edema. NEUROLOGIC: Grossly intact. IMPRESSION: 1. Influenza A. 2. Congestive heart failure and cardiomegaly with an ejection fraction of 10%. PLAN: The patient has been placed on Tamiflu 75 mg 1 tablet p.o. b.i.d. Cardiology is consulting and plans to proceed with the heart catheterization on . The patient has been started on 40 mg of Lasix daily due to the CHF exacerbation. The patient's COPD medications have been restarted. We will continue to monitor, manage and treat the patient appropriately throughout her hospitalization. CONSTANCE GOODEN MD DR: BROCK/karlie JOB#: [id number] / [id number]
--- NOTE | 2016-10-01 10:48 | PDOC ---
CARDIO Progress Notes Date and Time Date of Service 10/01/2016 Time of Evaluation 0920 Vitals Vitals Vital Signs Date Time Temp Pulse Resp B/P Pulse Ox O2 Delivery O2 Flow Rate FiO2 10/01/16 10:13 98 125/71 10/01/16 08:26 91 Room Air 10/01/16 07:30 98.7 20 98.7 09/30/16 17:17 2 Weight Weight [ ] Input and Output Intake and Output Intake and Output 10/01/16 07:00 Intake Total 0 ml Output Total 500 ml Balance -500 ml Intake Oral 0 ml Output Urine Total 500 ml # Voids 5 Laboratory Labs Laboratory Tests Test 09/30/16 11:00 10/01/16 05:20 White Blood Count 9.7x10^3/uL (4.0-11.0) Red Blood Count 5.31x10^6/uL (3.50-5.40) Hemoglobin 14.3g/dL (12.0-15.5) Hematocrit 44.2% (36.0-47.0) Mean Corpuscular Volume 83fL (79-100) Mean Corpuscular Hemoglobin 27pg (25-35) Mean Corpuscular Hemoglobin Concent 32g/dL (31-37) Red Cell Distribution Width 16.4% (11.5-14.5) Platelet Count 227x10^3/uL (140-400) Neutrophils (%) (Auto) 83% (31-73) Lymphocytes (%) (Auto) 9% (24-48) Monocytes (%) (Auto) 8% (0-9) Eosinophils (%) (Auto) 0% (0-3) Basophils (%) (Auto) 1% (0-3) Neutrophils # (Auto) 8.1x10^3uL (1.8-7.7) Lymphocytes # (Auto) 0.8x10^3/uL (1.0-4.8) Monocytes # (Auto) 0.7x10^3/uL (0.0-1.1) Eosinophils # (Auto) 0.0x10^3/uL (0.0-0.7) Basophils # (Auto) 0.0x10^3/uL (0.0-0.2) Prothrombin Time 17.2SEC (11.7-14.0) 15.9SEC (11.7-14.0) Prothromb Time International Ratio 1.5 (0.8-1.1) 1.4 (0.8-1.1) Sodium Level 137mmol/L (136-145) Potassium Level 3.5mmol/L (3.5-5.1) Chloride Level 100mmol/L (98-107) Carbon Dioxide Level 25mmol/L (21-32) Anion Gap 12 (6-14) Blood Urea Nitrogen 10mg/dL (7-20) Creatinine 0.9mg/dL (0.6-1.0) Estimated GFR (Cockcroft-Gault) 64.8 BUN/Creatinine Ratio 11 (6-20) Glucose Level 101mg/dL (70-99) Calcium Level 9.2mg/dL (8.5-10.1) Total Bilirubin 1.1mg/dL (0.2-1.0) Aspartate Amino Transf (AST/SGOT) 32U/L (15-37) Alanine Aminotransferase (ALT/SGPT) 35U/L (14-59) Alkaline Phosphatase 128U/L (46-116) Creatine Kinase 107U/L (26-192) Creatine Kinase MB (Mass) 2.7ng/mL (0.0-3.6) Creatine Kinase MB Relative Index 2.5% (0-4) Troponin I Quantitative 0.053ng/mL (0.000-0.055) JW-Lvx-A-Type Natriuretic Peptide 5553pg/mL (0-124) Total Protein 7.4g/dL (6.4-8.2) Albumin 3.4g/dL (3.4-5.0) Albumin/Globulin Ratio 0.9 (1.0-1.7) Triglycerides Level 59mg/dL (0-150) Cholesterol Level 132mg/dL (0-200) LDL Cholesterol, Calculated 76mg/dL (0-100) VLDL Cholesterol, Calculated 12mg/dL (0-40) HDL Cholesterol 44mg/dL (40-60) Cholesterol/HDL Ratio 3.0 Thyroid Stimulating Hormone (TSH) 0.575uIU/mL (0.358-3.74) Influenza Type A Antigen Positive (NEGATIVE) Influenza Type B Antigen Negative (NEGATIVE) Physical Exam HEENT: Neck Supple W Full Motion Chest: Symmetric LUNGS: Other (diffuse wheeze) Heart: S1S2, RRR (SR/ST. no significant ectopies overnight), murmurs (3/6 systolic murmur to LLS border) Abdomen: Soft N/T Extremities: No Calf Tenderness, Other (1+ bilateral LE pitting jose,a) Neurology: alert, oriented, follow commands Assessment Assessment 1. FLU/COPD/tobaccoism 2. 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 Cardiomyopathy: EF <20% 4. Hx of DVT/PE (2011) with chronic coumadin therapy (on hold since Thursday) 5. Substance abuse: methamphetamines and marijuana. Currently avoiding tox screen 6. HTN: controlled Recommendation 1. Continue po diuretic therapy and optimization. ECASA 2. No BB with methamphetamine use. 3. Reinforced adherence to medical treatment and abstinence to meth/marijuana. Smoking cessation 4. Hold coumadin. TSH/lipids on goal. 5. LHC tomorrow, risks and benefits discussed and agreeable. 6. Recommend pulmonary consult for optimization. 7. Hold coumadin for now in anticipation of LHC. ESTEPHANIE CAMPOS APRN Oct 01, 2016 10:48
[2016-10-01] MEDS: ALPRAZOLAM 0.5 MG TABLET PO PRN (20:53)
[2016-10-02] VITALS (13 sets, daily range): BP systolic 114–169; BP diastolic 52–83
[2016-10-02] MEDS: ALPRAZOLAM 0.5 MG TABLET PO PRN ×4 (04:45→20:25)
[2016-10-02 08:12] LABS: INR 1.1 (0.8-1.1); PROTHROMBIN TIME PATIENT 13.5 SEC (11.7-14.0)
--- NOTE | 2016-10-02 09:37 | PDOC ---
GENERAL General: vss with tmax 102.6. feels miserable. chest with bilateral rhonchi. for heart cath today. continue symptomatic treatment/tamiflu for influenza. Problems: VITAL SIGNS Vital Signs: Vital Signs Date Time Temp Pulse Resp B/P Pulse Ox O2 Delivery O2 Flow Rate FiO2 10/02/16 07:45 Room Air 10/02/16 07:00 98.8 101 22 137/62 94 98.8 10/02/16 02:48 2.0 I & O I & O Intake and Output 10/02/16 07:00 Intake Total 380 ml Balance 380 ml Intake Oral 380 ml # Voids 6 ALLERGIES Allergies: Allergies Coded Allergies Type Severity Reaction Last Updated Verified No Known Drug Allergies 12/30/15 No MEDS Medications: Current Medications Medications (Trade) Dose Ordered Sig/José Luis Start Time Stop Time Status Last Admin Dose Admin Acetaminophen (Tylenol) 650 mg PRN Q4HRS PRN 09/30/16 19:00 10/01/16 23:30 650 MG Albuterol Sulfate (Ventolin Neb Soln) 2.5 mg PRN Q4HRS PRN 09/30/16 18:45 10/01/16 08:39 2.5 MG Alprazolam (Xanax) 0.5 mg PRN Q6HRS PRN 09/30/16 20:45 10/02/16 04:45 0.5 MG Amlodipine Besylate (Norvasc) 5 mg DAILY 10/01/16 09:00 10/01/16 10:13 5 MG Aspirin (Ecotrin) 81 mg [id number] 10/01/16 10:00 10/01/16 10:12 81 MG Furosemide (Lasix) 40 mg DAILY 10/01/16 09:00 10/01/16 10:12 40 MG Hydralazine HCl (Apresoline) 10 mg PRN Q4HRS PRN 09/30/16 19:30 Oseltamivir Phosphate (Tamiflu) 75 mg BID 09/30/16 21:00 10/05/16 20:59 10/01/16 20:53 75 MG LAB Lab: Laboratory Tests Test 10/02/16 03:50 Prothrombin Time 13.5SEC (11.7-14.0) Prothromb Time International Ratio 1.1 (0.8-1.1) CONSTANCE BAEZ MD Oct 02, 2016 09:37
[2016-10-02] MEDS ORDERED: VERAPAMIL 5 MG/2 ML VIAL. IART ONE (09:45)
[2016-10-02] MEDS ORDERED: IOHEXOL 300 MG/ML 100ML VIAL. IART ONE (09:45)
[2016-10-02] MEDS ORDERED: MIDAZOLAM HCL 2 MG/2 ML VIAL. IV ONE (09:45)
[2016-10-02] MEDS ORDERED: NITROGLYCERIN 200 MCG/2 ML SYRINGE FOR CATH/VASC LAB. IART ONE (09:45)
[2016-10-02] MEDS ORDERED: HEPARIN for IV BOLUS 10,000 UNIT/10 ML VIAL. IART ONE (09:45)
[2016-10-02] MEDS ORDERED: FENTANYL PF 100 MCG/2 ML VIAL. IV ONE (09:45)
[2016-10-02] MEDS ORDERED: LIDOCAINE 2% 20 ML VIAL. IJ ONE (10:00)
--- NOTE | 2016-10-02 10:28 | CARD ---
APPROVED REPORT Procedure(s) performed: Left Heart Catheterization + Coronary angiography + Left ventriculogram HISTORY The patient is a 56 year-old female with a history of : previous CHF. INDICATION The indication(s) include : peripheral edema, dyspnea. CASE TECHNIQUE During this case, Fluoroscopy and low osmolar contrast were used for imaging. PROCEDURE NARRATIVE The patient was brought electively to the cardiac catheterization lab. A timeout was performed confi rming the patient's name, date of , procedure, and site of procedure. All necessary personnel w ere wearing the appropriate protective equipment and radiation monitor devices. After explaining the risks and benefits of the procedure and alternatives, informed consent was obtained. (See nursing no gavino for medications administered). The right wrist was sterilely prepped and draped in the usual fas hion. The right wrist was infiltrated with 1 mL of 2% lidocaine for subcutaneous anesthesia. A 6 Fr ench Terumo glide sheath was inserted into the right radial artery without difficulty. Right and lef t coronary angiography was performed using a 6Fr TIG 4.0 catheter. Left ventricular end diastolic pr essure was obtained with a pigtail catheter and pullback was performed after left ventriculography. All catheter exchanges and advancements were performed over a guidewire. At case completion the righ t radial sheath was removed and a Terumo radial band was applied with 13 ml of air. The patient tole rated the procedure well and there were no immediate complications. HEMODYNAMICS: LVEDP 18 mm Hg No gradient on LV to aortic pullback. LEFT VENTRICULOGRAM: *Severe global hypokinesis with an EF of 20% *No mitral regurgitation *Aortic stenosis on pullback. CORONARY ANGIOGRAPHY: LM is a large caliber vessel with normal angiographic appearance. LAD is a large caliber vessel with normal angiographic appearance. D1 is a moderate caliber vessel with normal angiographic apeparance. LCx is a moderate caliber non-dominant vessel with normal angiographic appearance. OM1 is a moderate caliber vessel with normal angiographic appearance. RCA is a large caliber dominant vessel with normal angiographic appearance. RPDA and RPL are moderate caliber vessels with normal angiographic appearance. Conclusion 1. Severe left ventricular pressure overload 2. Dilated non-ischemic CMP. EF 20% 3. No evidence of coronary disease by angiography. Recommendations Aggressive Medical Therapy
[2016-10-02] MEDS: IV 1/2 NORMAL SALINE 1,000 ML IV SCH ×2 (10:30→23:05)
[2016-10-02] MEDS: FUROSEMIDE 40 MG TABLET PO SCH (12:11)
[2016-10-02] MEDS: OSELTAMIVIR 75 MG CAPSULE PO SCH ×2 (12:12→20:25)
[2016-10-02] MEDS: ASPIRIN ENTERIC COATED 81 MG TABLET.DR. PO SCH (12:12)
[2016-10-02] MEDS: AMLODIPINE BESYLATE 5 MG TABLET PO SCH (12:13)
[2016-10-03] VITALS (7 sets, daily range): BP systolic 114–152; BP diastolic 59–94
[2016-10-03] MEDS: ALPRAZOLAM 0.5 MG TABLET PO PRN ×4 (03:35→21:43)
--- NOTE | 2016-10-03 08:16 | PDOC ---
GENERAL General: vss with tmax 101.7. continues to look miserable. cath with non ischemic cardiomyopathy. will check nocturnal desat study to look for indirect evidence of ricki as possible reversible cause of cardiomyopathy. continue same otherwise. Problems: VITAL SIGNS Vital Signs: Vital Signs Date Time Temp Pulse Resp B/P Pulse Ox O2 Delivery O2 Flow Rate FiO2 10/03/16 03:05 99.3 115 20 133/59 97 Nasal Cannula 2.0 99.3 I & O I & O Intake and Output 10/03/16 07:00 Intake Total 1500 ml Output Total 300 ml Balance 1200 ml Intake Oral 1200 ml IV Total 300 ml Output Urine Total 300 ml # Voids 4 # Bowel Movements 2 ALLERGIES Allergies: Allergies Coded Allergies Type Severity Reaction Last Updated Verified No Known Drug Allergies 12/30/15 No MEDS Medications: Current Medications Medications (Trade) Dose Ordered Sig/José Luis Start Time Stop Time Status Last Admin Dose Admin Acetaminophen (Tylenol) 650 mg PRN Q4HRS PRN 09/30/16 19:00 10/01/16 23:30 650 MG Albuterol Sulfate (Ventolin Neb Soln) 2.5 mg PRN Q4HRS PRN 09/30/16 18:45 10/01/16 08:39 2.5 MG Alprazolam (Xanax) 0.5 mg PRN Q6HRS PRN 09/30/16 20:45 10/03/16 03:35 0.5 MG Amlodipine Besylate (Norvasc) 5 mg DAILY 10/01/16 09:00 10/02/16 12:13 5 MG Aspirin 81 mg 81 mg [id number] 10/01/16 10:00 10/02/16 12:12 81 MG Fentanyl Citrate (Fentanyl 2ml Vial) 100 mcg 1X ONCE 10/02/16 09:45 10/02/16 09:54 DC 10/02/16 09:44 100 MCG Furosemide (Lasix) 40 mg DAILY 10/01/16 09:00 10/02/16 12:11 40 MG Heparin Sodium (Porcine) 2,500 unit 1X ONCE 10/02/16 09:45 10/02/16 09:54 DC 10/02/16 09:49 2,500 UNIT Heparin Sodium/ Sodium Chloride 1,000 unit 1X ONCE 10/02/16 09:45 10/02/16 09:54 DC 10/02/16 09:45 1,000 UNIT Hydralazine HCl (Apresoline) 10 mg PRN Q4HRS PRN 09/30/16 19:30 Iohexol (Omnipaque 300 Mg/ml) 100 ml 1X ONCE 10/02/16 09:45 10/02/16 09:54 DC 10/02/16 09:44 66 ML Lidocaine HCl 20 ml 1X ONCE 10/02/16 10:00 10/02/16 10:01 DC 10/02/16 09:44 2 ML Midazolam HCl (Versed) 2 mg 1X ONCE 10/02/16 09:45 10/02/16 09:54 DC 10/02/16 09:44 2 MG Nitroglycerin (Nitroglycerin) 200 mcg 1X ONCE 10/02/16 09:45 10/02/16 09:54 DC 10/02/16 09:45 200 MCG Oseltamivir Phosphate (Tamiflu) 75 mg BID 09/30/16 21:00 10/05/16 20:59 10/02/16 20:25 75 MG Sodium Chloride (Iv Sodium Chloride 0.45%) 1,000 ml @ 75 mls/hr [id number] 10/02/16 09:45 10/02/16 10:30 75 MLS/HR Verapamil HCl (Verapamil) 2.5 mg 1X ONCE 10/02/16 09:45 10/02/16 09:54 DC 10/02/16 09:49 2.5 MG CONSTANCE BAEZ MD Oct 03, 2016 08:16
[2016-10-03 10:04] LABS: CREATININE 0.8 mg/dL (0.6-1.0); GFR 74.2; MAGNESIUM 1.9 mg/dL (1.8-2.4); POTASSIUM 3.4 mmol/L (3.5-5.1)
[2016-10-03] MEDS: OSELTAMIVIR 75 MG CAPSULE PO SCH ×2 (10:29→20:38)
[2016-10-03] MEDS: AMLODIPINE BESYLATE 5 MG TABLET PO SCH (10:29)
[2016-10-03] MEDS: ASPIRIN ENTERIC COATED 81 MG TABLET.DR. PO SCH (10:29)
[2016-10-03] MEDS: POTASSIUM CHLORIDE 20 MEQ TABLET.ER. PO SCH (10:30)
[2016-10-03] MEDS: ISOSORBIDE MONONITRATE ER 30 MG TAB.ER.24H PO SCH (10:30)
[2016-10-03] MEDS: FUROSEMIDE 40 MG TABLET PO SCH (10:31)
--- NOTE | 2016-10-03 12:37 | PDOC ---
CARDIO Progress Notes Date and Time Date of Service 10/03/2016 Time of Evaluation 1200 Subjective Subjective: No Chest Pain, No Palpitations, No Dizziness, Other (mild SOA) Vitals Vitals Vital Signs Date Time Temp Pulse Resp B/P Pulse Ox O2 Delivery O2 Flow Rate FiO2 10/03/16 10:30 107 135/75 10/03/16 07:00 98.8 24 98 Nasal Cannula 3.0 98.8 Weight Weight [ ] Input and Output Intake and Output Intake and Output 10/03/16 07:00 Intake Total 1500 ml Output Total 300 ml Balance 1200 ml Intake Oral 1200 ml IV Total 300 ml Output Urine Total 300 ml # Voids 4 # Bowel Movements 2 Laboratory Labs Laboratory Tests Test 10/03/16 09:30 Sodium Level 134mmol/L (136-145) Potassium Level 3.4mmol/L (3.5-5.1) Chloride Level 98mmol/L (98-107) Carbon Dioxide Level 29mmol/L (21-32) Anion Gap 7 (6-14) Blood Urea Nitrogen 11mg/dL (7-20) Creatinine 0.8mg/dL (0.6-1.0) Estimated GFR (Cockcroft-Gault) 74.2 Glucose Level 127mg/dL (70-99) Calcium Level 9.0mg/dL (8.5-10.1) Magnesium Level 1.9mg/dL (1.8-2.4) Microbiology Micro Microbiology 09/30/16 Blood Culture - Preliminary, Resulted NO GROWTH AFTER 3 DAYS Physical Exam HEENT: Neck Supple W Full Motion Chest: Symmetric LUNGS: Other (diffuse wheeze; basilar crackles) Heart: S1S2, RRR (SR/ST. no significant ectopies overnight), murmurs (3/6 systolic murmur to LLS border) Abdomen: Soft N/T Extremities: No Calf Tenderness, Other (trace LE edema) Neurology: alert, oriented, follow commands Other Exams right wrist arteriotomy site intact no swelling, neurovascular status to right hand intact Assessment Assessment 1. FLU/COPD/tobaccoism: sinus tach, reactive. fever overnight 2. Acute on chronic mixed diastolic/systolic CHF: compensated 3. Dilated/NICM: EF <20% S/P LHC with no CAD. Likely toxic induced (chronic meth use), also viral etiology is part of differential 4. 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 Substance abuse: methamphetamines and marijuana. Refuses to do tox screen, last known use last weekend 6. HTN: controlled Recommendation 1. Continue po lasix and will add aldactone. Recommend starting on lisinopril prior to DC pending BP trend overnight 2. May resume metoprolol if pt will abstain from methamphetamine use otherwise start Imdur. 3. Reinforced adherence to medical treatment and abstinence to meth/marijuana. Smoking cessation 4. Resume coumadin per PCP 5. Continue with optimization. Lipids very well controlled with no statin 6. Recommend pulmonary consult for optimization. 7. Replace K 8. Lifevest is a consideration if pt would be compliant but no financial means/ health insurance as well to obtain this. 9. Recommend follow up in 1 month and TTE in 3 months for AICD consideration 10. Social service consult to help with disability information ESTEPHANIE CAMPOS APRN Oct 03, 2016 12:37
[2016-10-03] MEDS: SPIRONOLACTONE 25 MG TABLET PO SCH (13:02)
[2016-10-03] MEDS: ALBUTEROL SULFATE 2.5 MG/3 ML NEBU. NEB PRN (15:00)
[2016-10-03] MEDS: WARFARIN 3 MG TABLET. PO SCH (16:08)
[2016-10-03] MEDS ORDERED: INSULIN ASPART 300 UNITS/3 ML INSULN.PEN SQ ONE ×2 (23:00→23:30)
[2016-10-04 00:56] LABS: BARBITURATES NEG (NEG); BENZODIAZEPINES POS (NEG); CANNABINOIDS POS (NEG); COCAINE NEG (NEG); METHADONE NEG (NEG); OPIATES NEG (NEG); PHENCYCLIDINE NEG (NEG)
[2016-10-04 01:02] LABS: ETHANOL, URINE NEG (NEG)
[2016-10-04] MEDS: ALBUTEROL SULFATE 2.5 MG/3 ML NEBU. NEB PRN ×2 (01:57→17:19)
[2016-10-04 03:00] VITALS: BP 132/81
[2016-10-04 05:09] LABS: INR 1.1 (0.8-1.1); PROTHROMBIN TIME PATIENT 13.9 SEC (11.7-14.0)
[2016-10-04] MEDS: ALPRAZOLAM 0.5 MG TABLET PO PRN ×3 (05:59→22:05)
[2016-10-04 07:18] VITALS: BP 136/78
[2016-10-04] MEDS: OSELTAMIVIR 75 MG CAPSULE PO SCH ×2 (08:48→22:05)
[2016-10-04] MEDS: FUROSEMIDE 40 MG TABLET PO SCH (08:48)
[2016-10-04] MEDS: AMLODIPINE BESYLATE 5 MG TABLET PO SCH (08:49)
[2016-10-04] MEDS: SPIRONOLACTONE 25 MG TABLET PO SCH (08:49)
[2016-10-04] MEDS: ASPIRIN ENTERIC COATED 81 MG TABLET.DR. PO SCH (08:49)
[2016-10-04] MEDS: POTASSIUM CHLORIDE 20 MEQ TABLET.ER. PO SCH (08:49)
[2016-10-04] MEDS: ISOSORBIDE MONONITRATE ER 30 MG TAB.ER.24H PO SCH (08:49)
[2016-10-04 10:34] VITALS: BP 109/65
--- NOTE | 2016-10-04 11:44 | PDOC ---
Provider Note Provider Note sleeping. no orthopnea- temp less , bp ok- will change from norvasc to lisinopril re CM, rest same, check K+ in am- + flu A noted, clear cxr on admit NAHUM CLAY MD Oct 04, 2016 11:44
[2016-10-04 15:40] VITALS: BP 114/52
[2016-10-04] MEDS: WARFARIN 3 MG TABLET. PO SCH (16:52)
[2016-10-04 19:47] VITALS: BP 131/81
[2016-10-04 22:55] VITALS: BP 110/57
[2016-10-05 03:20] VITALS: BP 118/70
[2016-10-05 07:48] VITALS: BP 135/54
--- NOTE | 2016-10-05 08:09 | DISCH ---
DISCHARGE INSTRUCTIONS Condition on Discharge Condition on Discharge: Stable Activity After Discharge Activity Instructions for Disc: No restrictions Diet after Discharge Diet after Discharge: Low Sodium 4 gm Follow-Up Follow up with: NAHUM Doran dr, MD Oct 05, 2016 08:09
--- NOTE | 2016-10-05 08:14 | PDOC ---
Provider Note Provider Note [id number] NAHUM CLAY MD Oct 05, 2016 08:14
[2016-10-05] MEDS: FUROSEMIDE 40 MG TABLET PO SCH (08:20)
[2016-10-05] MEDS: ASPIRIN ENTERIC COATED 81 MG TABLET.DR. PO SCH (08:20)
[2016-10-05] MEDS: OSELTAMIVIR 75 MG CAPSULE PO SCH (08:20)
[2016-10-05] MEDS: POTASSIUM CHLORIDE 20 MEQ TABLET.ER. PO SCH (08:20)
[2016-10-05 08:54] VITALS: BP 135/54
[2016-10-05] MEDS: SPIRONOLACTONE 25 MG TABLET PO SCH (08:54)
[2016-10-05] MEDS: ISOSORBIDE MONONITRATE ER 30 MG TAB.ER.24H PO SCH (08:54)
[2016-10-05] MEDS ORDERED: LISINOPRIL 10 MG TABLET PO SCH (18:00)
--- NOTE | 2016-10-05 19:28 | DS ---
DATE OF DISCHARGE: 10/05/2016 HOSPITAL SUMMARY: A 56-year-old white female with known history of methamphetamine abuse and some degree of cardiomyopathy, came in with cough, wheezing and positive influenza A test. Her chest x-ray showed an enlarged heart with no acute infiltrates. The CBC was normal. Chemistry profile, thyroid function, and lipid profile were unremarkable. [place] 5553 consistent with her known cardiomyopathy. Blood cultures had no growth. She underwent cardiac catheterization per Dr. Woody to right radial approach, which revealed severe diastolic cardiomyopathy with ejection fraction of 20% with no visible coronary disease. She was treated with Tamiflu and then amlodipine was stopped and lisinopril started for the assistance of her dilated cardiomyopathy. She is afebrile. Oxygen saturation are normal and she is strongly requesting to go home. She is aware of the conditions that she has and is adamant about leaving the hospital at this time. So, she has been discharged. FINAL DIAGNOSES: 1. Acute influenza A. 2. Severe dilated cardiomyopathy, ejection fraction of 20%. 3. Chronic methamphetamine abuse. OPERATIONS, PROCEDURES, AND COMPLICATIONS: None. CONSULTATIONS: Dr. Woody, procedures to be cardiac catheterization. DISPOSITION: She will stop her amlodipine and start lisinopril 10 mg daily to assist in her cardiomyopathy. Low salt diet. Rest of home meds remain the same. Complete avoidance of drugs of abuse, which has caused her cardiomyopathy and tobacco as well. Prognosis is poor. NAHUM CLAY MD DR: TRISTIAN/karlie JOB#: [id number] / [id number]
== END 2016-10-05 10:30 | disposition home or self-care (01) | DRG 286 ==
LOC: ER 10:18 → ED HOLD 13:07 → 2 SOUTH 18:15 → 5 NORTH 10-03 12:06
PROVIDERS: ADMIT Family Medicine; ATTEND Family Medicine
PROC: 4A023N7 Measurement of Cardiac Sampling and Pressure, Left Heart, Percutaneous Approach (ICD-10-PCS; principal; 2016-10-02)
PROC: B2111ZZ Fluoroscopy of Multiple Coronary Arteries using Low Osmolar Contrast (ICD-10-PCS; 2016-10-02)
PROC: B2151ZZ Fluoroscopy of Left Heart using Low Osmolar Contrast (ICD-10-PCS; 2016-10-02)
DX: I11.0 Hypertensive heart disease with heart failure (principal); J96.00 Acute respiratory failure, unspecified whether with hypoxia or hypercapnia; J44.1 Chronic obstructive pulmonary disease with (acute) exacerbation; R04.2 Hemoptysis; J10.1 Influenza due to other identified influenza virus with other respiratory manifestations; I50.43 Acute on chronic combined systolic (congestive) and diastolic (congestive) heart failure; I42.0 Dilated cardiomyopathy; F12.10 Cannabis abuse, uncomplicated; F15.10 Other stimulant abuse, uncomplicated; F17.200 Nicotine dependence, unspecified, uncomplicated; J45.909 Unspecified asthma, uncomplicated; M19.90 Unspecified osteoarthritis, unspecified site; K21.9 Gastro-esophageal reflux disease without esophagitis; Z79.01 Long term (current) use of anticoagulants; Z86.711 Personal history of pulmonary embolism; Z86.718 Personal history of other venous thrombosis and embolism; Z87.01 Personal history of pneumonia (recurrent)
CPT/HCPCS: 36415; 71010; 80048; 80053; 80061; 82553; 83735; 83880; 84132; 84443; 84484; 85027; 85610; 87040; 87804; 93005; 93458; 94250; 94640; 94760; 94799; 96374; C1769; C1892; G0481; J1815; J1940; J2250; J3010; J3490; Q9967; 99285-25

== ENCOUNTER → 2021-03-14 | Outpatient (CLI) | payer BC, OTHER ==
[2019-01-26 08:27] VITALS: BP 150/70
[~2021-03-14] MED LIST changes: +CARV6.2511 PO; +CIPR500T94 PO; +FLUT1BLS3 IH; +FURO-68 PO; +FURO20TA3 PO; +LISI10TA16 PO; -METO50TA2 PO; +METO50TA6 PO; +SACU1TAB PO; +VENTOLIN HFA18 GM INH; +WARF-31 PO; +WARF3TAB50 PO; +WARF3TAB54 PO; -WARF3TAB7 PO; +WARF6TAB47 PO; -ZOLP5TAB4 PO; +ZOLP5TAB5 PO
--- NOTE | 2021-03-14 14:20 | KCIC ---
EXAMINATION: US ABDOMEN COMPLETE 03/14/2021 12:28 PM INDICATION: Distended abdomen TECHNIQUE: Longoria scale and color Doppler ultrasound images of the abdomen were obtained. COMPARISON: None. FINDINGS: Liver: The liver is normal in size measuring 17 cm in length. There is increased hepatic echogenicity . There are 2 anechoic simple cysts in the liver measuring 3.4 cm and 1.4 cm. Gallbladder: The gallbladder is normal in caliber. No cholelithiasis or sludge. The gallbladder wal l is normal in thickness measuring 2 mm. Bile ducts: The common bile duct is normal measuring 3 mm. No intrahepatic biliary duct dilatation. Kidneys: The right kidney measures 10.0 x 4.0 x 5.3 cm. The left kidney measures 10.0 x 4.2 x 4.9 c m. Normal cortical thickness and echogenicity bilaterally. No hydronephrosis. Spleen: Spleen is normal measuring 12.1 cm. There are some echogenic foci in the spleen, likely calci fied granulomas. Other: The proximal and distal abdominal aorta are normal in caliber. Mid abdominal aorta is obscured by bowel gas. The IVC is patent at the level of the liver. The pancreas is mostly obscured by bowel gas. No ascites. IMPRESSION: 1. Hepatic steatosis. 2. Two simple liver cysts measuring up to 3.4 cm. Electronically signed by: Eloina Holliday MD (03/14/2021 2:18 PM) [id number]
== END ==
LOC: KCIC US 12:19
PROVIDERS: ATTEND Family Medicine
DX: K76.0 Fatty (change of) liver, not elsewhere classified (principal); K76.89 Other specified diseases of liver; R14.0 Abdominal distension (gaseous)
CPT/HCPCS: 76700

== ENCOUNTER → 2021-10-07 | Outpatient (CLI) | payer OTHER ==
[2019-01-26 08:27] VITALS: BP 150/70
--- NOTE | 2021-10-07 12:09 | RAD ---
EXAM: Chest, 2 views. HISTORY: COPD. COMPARISON: 01/22/2019 FINDINGS: 2 views of the chest are obtained. There is no infiltrate, pleural effusion or pneumothorax . There are a few calcified granulomas. There is suspected right middle lobe atelectasis or scarring. IMPRESSION: Suspected right middle lobe atelectasis or scarring. Electronically signed by: Jaye Apodaca MD (10/07/2021 12:07 PM) [id number]
== END ==
LOC: RAD 11:34
PROVIDERS: ATTEND Family Medicine
DX: Z02.71 Encounter for disability determination (principal); J84.10 Pulmonary fibrosis, unspecified; J44.9 Chronic obstructive pulmonary disease, unspecified
CPT/HCPCS: 71046